=== PATIENT | male | born 1960 | race Hispanic/Latino ===

== ENCOUNTER 2017-05-04 07:35 | Day surgery (SDC) | payer MEDICARE, BC ==
[2017-04-29 13:17] VITALS: BMI 32.1
[2017-05-04] MEDS ORDERED: Rocuronium 10 mg/ml (5 ml) ONE (08:14)
[2017-05-04] MEDS ORDERED: Propofol 10 mg/ml Inj (20 ML) ONE ×3 (08:14→10:19)
[2017-05-04] MEDS ORDERED: ePHEDrine 50 mg/ml Inj ONE (08:14)
[2017-05-04] MEDS ORDERED: Midazolam 2 MG/2 ML VIAL ONE (08:14)
[2017-05-04] MEDS ORDERED: Phenylephrine 10 mg/ml Inj ONE (08:15)
[2017-05-04] MEDS ORDERED: Succinylcholine 200 mg/10 ml Inj IV ONE (08:15)
[2017-05-04 08:23] VITALS: RESP 18
[2017-05-04] MEDS ORDERED: Bacitracin Ointment 30 GM TUBE ONE (08:24)
[2017-05-04] MEDS ORDERED: Lactated Ringer's 1,000 ML IV ONE (09:10)
[2017-05-04] MEDS ORDERED: Lidocaine 1% w Epi 1:100,000 Inj ONE (09:54)
[2017-05-04] MEDS ORDERED: Lidocaine 1% w Epi 1:100,000 Inj INJ ONE ×2 (09:55)
[2017-05-04] MEDS ORDERED: Lactated Ringer's 500 ML IV ONE (10:00)
--- NOTE | 2017-05-04 10:40 | PCM.SURG1 ---
Surgeon's Initial Post Op Note - Surgeon's Notes Surgeon: Valerie Vizcarra MD Shipyard Painter: Francisco Appiah Type of Anesthesia: General Endo Pre-Operative Diagnosis: Left elbow lateral epicondylitis Operative Findings: see op report Post-Operative Diagnosis: same as pre-op dx Operation Performed: Left elbow open debriedement of lateral epicondyle Specimen/Specimens Removed: left elbow degenterative tendon Estimated Blood Loss: EBL {In ML}: 5 Date of Surgery/Procedure: 05/04/17 Time of Surgery/Procedure: 09:30
[2017-05-04] MEDS ORDERED: Oxycodone/Acetaminophen 5/325 mg Tab PO PRN (10:41)
[2017-05-04] MEDS ORDERED: HYDROmorphone 0.5 mg/0.5 ml ISec IVP PRN (10:51)
[2017-05-04 15:43] VITALS: BP 114/68; PULSE 85; TEMP 98.2; O2SAT 98
--- NOTE | 2017-05-05 12:52 | OP ---
PROCEDURE DATE: 05/04/2017 PREOPERATIVE DIAGNOSIS: Left elbow lateral epicondylitis. POSTOPERATIVE DIAGNOSIS: Left elbow lateral epicondylitis. PROCEDURE: Left elbow open debridement of the lateral epicondylitis. ATTENDING SURGEON: Valerie Vizcarra MD WORLD HISTORY TEACHER: Francisco Appiah PA-C TYPE OF ANESTHESIA: General. ESTIMATED BLOOD LOSS: 5 mL SPECIMEN: None. COMPLICATIONS: None. Preoperative exam revealed full range of motion and no instability. INDICATIONS After failing a course of non-operative therapy, the patient elected to undergo the above procedure. In the office, the risks and possible complications were discussed in detail with the patient. These risks include but are not limited to continued pain, lack of motion, infection, vascular injury, DVT/PE, nerve injury, reflex sympathetic dystrophy, compartment syndrome, unforeseen medical and/or anesthesia complications, limb loss, and even . The patient expressed an understanding of the risks and possible benefits of the procedure, and is also aware of the alternatives to surgery. An informed consent was obtained, and was checked immediately pre-op. DESCRIPTION OF PROCEDURE: The patient was correctly identified in the holding area and the left elbow was marked with the surgeons initials. The patient was transported to the operating room and placed in the supine position, general anesthesia was obtained, a pre-operative orthopaedic exam revealed full range of motion, no instability. During this procedure, I was assisted by Francisco Appiah who assisted in positioning the patient on the operating room table as well as transferring the patient from the operating room table to the recovery room stretcher. In addition, Francisco Appiah assisted me during the actual operative procedure by positioning the patient's extremity to allow for easier arthroscopic access to all areas of the joint. The presence of Francisco Appiah as my operative greenhouse assistant was medically necessary to ensure the utmost safety of the patient in the pre, intra-, and post-operative periods. Valerie Vizcarra MD [facility]
== END 2017-05-04 15:10 | disposition home or self-care (01) ==
LOC: H.OPSURG 07:35
PROVIDERS: ATTEND Orthopaedic Surgery
DX: M77.12 Lateral epicondylitis, left elbow (principal)
CPT/HCPCS: 24358; 88305; J0330; J2001; J2250; J2370; J2405; J2704; J3010; J7030; J7120